=== PATIENT | male | born 1950 | race Caucasian/White ===

== ENCOUNTER 2017-09-14 07:20 | Observation (INO) ==
[2017-09-14] MEDS ORDERED: 0.9 % Sodium Chloride 1,000 ML IVC SCH (08:00)
[2017-09-14] MEDS ORDERED: Heparin 1,000 UNIT, 0.9 % Sodium Chloride 500 ML INARTERIAL ONE (09:00)
--- NOTE | 2017-09-14 09:07 | Electrophysiology H & P ---
Date of Encounter: 09/14/17 Time of Encounter: 09:02 Assessment and Plan (1) SVT (supraventricular tachycardia) Current Visit: Yes Status: Acute The assessment and plan as outlined above was discussed with the patient and/or family members who expressed understanding and agreement. All questions were answered. Symptomatic, he has elected EPS/ ablation for possible cure. History of Present Illness Chief complaint: PALPS HPI: Mr. Barger is a 67 year old male with a history of palpitations. A LOOP recorder had been previously implanted. Recent recordings show episodes c/w SVT. Medical therapy or ablation was discussed. The procedure was discussed in detail. He agreed to proceed. Past Med Surg Social Fam HX - Past Medical History Medical history: non-contributory, other Psychiatric history: no psych history - Social History Smoking Status: Light tobacco smoker Smokeless Tobacco Status: No Alcohol use: none Drug use: none Medications and Allergies Multivitamin/Iron/Folic Acid [Centrum Complete Multivit Tab] 1 each PO DAILY 09/25 [History] lamoTRIgine [Lamictal] 1.5 tab PO QAM 07/22/16 [History] LevETIRAcetam [Keppra] 500 mg PO BID 05/04/17 [History] Aspirin [Lo-Dose Aspirin EC] 81 mg PO DAILY 09/14/17 [History] Hydrocodone/Ibuprofen [Hydrocodone-Ibuprofen 7.5-200] 1 tab PO Q8H PRN 09/14/17 [History] Ibuprofen [Advil] 400 mg PO Q6H PRN 09/14/17 [History] lamoTRIgine [Lamictal] 100 mg PO HS 09/14/17 [History] 3 Allergy/AdvReac Type Severity Reaction Status Date / Time acetaminophen [From Tylenol] Allergy Seizure Verified 07/21/17 13:16 povidone-iodine Allergy Rash Verified 07/21/17 13:16 [From Betadine] soap [From Betadine] Allergy Rash Verified 07/21/17 13:16 tramadol Allergy Seizure Verified 07/21/17 13:16 trazodone Allergy Seizure Verified 07/21/17 13:16 All Systems Review: A 10-system review of systems was performed and is negative for pertinent findings except as documented above in the HPI. Physical Examination General: Conversant, No Apparent Distress HEENT: Atraumatic, Normocephaly, Mucus Membranes Moist Neck: No JVD, Normal carotid pulses Cardiac: Reg Rate and Rhythm, Normal S1 and S2, No Murmur Lungs: Normal Breath Sounds, No Wheeze, Rales, Rhonchi Neuro: Alert and responsive Abdomen: Soft, Non-Tender Skin: No rashes noted on visualized skin Extremities: No Clubbing, No Cyanosis, No Edema, Normal Pulses
[2017-09-14] MEDS ORDERED: *HR* FentaNYL (PF) 100 MCG/2 ML VIAL ONE (09:34)
[2017-09-14] MEDS ORDERED: *HR* Midazolam HCl 5 MG/5 ML VIAL IVP ONE (09:34)
[2017-09-14] MEDS ORDERED: Isoproterenol HCl 1 MG/5 ML AMPUL ONE (10:11)
[2017-09-14] MEDS ORDERED: D5% in Water 250 ML ONE (10:12)
[2017-09-14] MEDS ORDERED: *HR* Promethazine 25 MG/ML VIAL IVP PRN (11:46)
[2017-09-14] MEDS ORDERED: Naloxone 0.4 MG/ML INJ IVP PRN (11:46)
--- NOTE | 2017-09-14 11:46 | Pre-Sedation Evaluation ---
Pre-sedation evaluation - Pre-sedation checklist Date of procedure: 09/14/17 Procedure: SVT ablation Recent Vitals: Last Vital Signs Temp 98.7 F 09/14/17 08:54 Pulse 65 09/14/17 08:54 Resp 16 09/14/17 08:54 BP 126/69 09/14/17 08:54 Pulse Ox 95 09/14/17 08:54 H&P (including ROS) documented in medical record: Yes Previous reaction to sedatives/anesthetics: No Dietary Status: NPO after Midnight Airway Assessment: Patient can open mouth completely, TMJ function normal, Micrognathia (under-bite, receding chin) absent Dentition: No loose teeth or bridges Possible difficult airway: No ASA Classification *see protocol: CLASS II-Mild systemic disease Plan of Care: Pt appropriate candidate for procedure/moderate/conscious sedation , Risks/benefits of procedure/sedation discussed w/ patient/family
--- NOTE | 2017-09-14 22:23 | Electrocardiograph Report ---
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
[2017-09-15 08:54] LABS: Basophils # 0.1 K/mcL (0.0-0.2); Eosinophils # 0.2 K/mcL (0.0-0.6); Hematocrit 44.9 % (37.5-50.1); Hemoglobin 15.4 g/dL (12.9-16.9); Immature Granulocytes % 0.7 % (0-4); Lymphocytes # 2.7 K/mcL (0.6-4.6); Lymphocytes % 21.6 %; Mean Corpuscular HGB Conc 34.3 g/dL (31.6-35.5); Mean Corpuscular Hemoglobin 30.7 pg (28.0-33.3); Mean Corpuscular Volume 89.4 fL (83.0-100.0); Mean Platelet Volume 9.8 fL (9.4-12.4); Monocytes # 1.1 K/mcL (0.0-1.3); Monocytes % 8.8 %; Neutrophils # 8.1 K/mcL (1.6-8.9); Platelet Count 192 K/mcL (140-400); Red Blood Count 5.02 M/mcL (4.19-5.50); Red Cell Distribution Width 13.6 % (11.5-14.5); Segmented Neutrophils % 65.9 %
[2017-09-15 09:04] LABS: BUN/Creatinine Ratio 24 (6-26); Blood Urea Nitrogen 18 mg/dL (8-26); Carbon Dioxide 23 mEq/L (19-29); Chloride 106 mEq/L (98-109); Potassium 4.6 mEq/L (3.5-4.5); Sodium 139 mEq/L (136-145)
[2017-09-15 09:05] LABS: Calcium 8.9 mg/dL (8.6-10.8); Glucose 108 mg/dL (70-99); Osmolality,Calculated 290 (280-300); eGFR For African Americans > 60 (> 60); eGFR For Non-African Americans > 60 (> 60)
--- NOTE | 2017-09-15 09:38 | Event Note ---
Date of Encounter: 09/15/17 Time of Encounter: 09:36 - Cardiology Event Note Plan was to undergo SVT ablation yesterday. Ended up being A-Flutter ablation. During procedure, pt went into V-Fib. Recommended he stay for [facility] to rule out ischemic cause of V-Fib. C discussed--R/B/A. Pt agrees to proceed with [facility] today. Further recommendations to follow.
[2017-09-15 09:45] LABS: Prothrombin Time 10.8 Seconds (9.4-12.1)
[2017-09-15] MEDS ORDERED: *HR* Heparin 10,000 UNIT/10 ML VIAL ONE (12:34)
[2017-09-15] MEDS ORDERED: Heparin 1,000 UNITS/500 mL NS 500 ML ONE (12:34)
[2017-09-15] MEDS ORDERED: 0.9 % Sodium Chloride 1,000 ML ONE (12:34)
[2017-09-15] MEDS ORDERED: Nitroglycerin 1,000 MCG/10 ML VIAL IV ONE (12:35)
--- NOTE | 2017-09-15 12:40 | Pre-Sedation Evaluation ---
Pre-sedation evaluation - Pre-sedation checklist Date of procedure: 09/15/17 Procedure: Left Heart Cath Recent Vitals: Last Vital Signs Temp 97.9 F 09/15/17 06:54 Pulse 67 09/15/17 06:54 Resp 18 09/15/17 06:54 BP 135/80 09/15/17 06:54 Pulse Ox 98 09/15/17 06:54 H&P (including ROS) documented in medical record: Yes Previous reaction to sedatives/anesthetics: No Dietary Status: NPO after Midnight Airway Assessment: Patient can open mouth completely, TMJ function normal Dentition: full dentition Possible difficult airway: No ASA Classification *see protocol: CLASS IV-Severe systemic disease/constant threat to pt's life Plan of Care: Pt appropriate candidate for procedure/moderate/conscious sedation , Risks/benefits of procedure/sedation discussed w/ patient/family, If not NPO; Risk of intake outweiged by necessity to perform procedure
[2017-09-15] MEDS ORDERED: *HR* Midazolam HCl 2 MG/2 ML VIAL ONE ×2 (12:43→12:54)
[2017-09-15] MEDS ORDERED: *HR* Bivalirudin 250 MG VIAL IVC ONE (13:02)
[2017-09-15] MEDS ORDERED: *HR* Ticagrelor 90 MG TABLET ONE (13:17)
--- NOTE | 2017-09-15 13:35 | Invasive Diagnostic Lab Proc ---
Name: Garrett Barger Date of Study: 09/15/2017 Date: 1950 Ht: 68.1in Medical Record#: [id number] Age: 67 Wt: 209.44lb Gender: Male BSA: 2.09 Order #: [id number] BMI: 31.74 Physicians Procedure Physician: Allan Lira DO Referring MD: Referring MD: Staff Name Position Time In Sites, Hellen RT (R) Scrub 12:37 PM Roberto Francisco RT (R) Monitor 12:37 PM Yobani Shukla RN [employer] 12:37 PM Indications Indication Unstable Angina Procedures Performed Procedure L HRT ARTERY/VENTRICLE ANGIO PRQ CARD SAMARA STENT W/ANGIO 1 VSL Pre-Procedure Checklist Informed consent is complete signed and on chart. H&P is on chart. ID band is on and ID verified with patient. Patient NPO for procedure The procedure was described for the patient and questions were answered. Blood Pressure: 148/78 ECG is on chart. Rhythm: Sinus Bradycardia Plan of Care Patient will tolerate the procedure without complications. Adequate level of comfort will be maintained. Hemodynamics will remain stable Patient will recover from procedure without complications. Respiratory function will be maintained. Cardiac rhythm will remain stable. Patient temperature will be maintained. Patient and/or family have verbalized understanding of the procedure. Patient Education Chief Complaint/Reason for Test: Cardiac Cath Developmental Category: Geriatric (65+ years) Developmentally Appropriate for Age: Yes Learning Barriers: None Education Needs: Procedure Education Method: Verbal Information Taught: Cardiac Cath Educational Evaluation: Able to repeat information Intravenous Access Time IV Size Location DC'd Fluid/Drip Rate Units RN 12:45 PM Started with 22g 1 " Lt Hand 0.9NaCl 25 ml/hr Yobani Shukla RN Allergies acetaminophen tramadol trazodone Povidone Iodine soap povidone-iodine Vital Signs Time BP (mmHg) HR (bpm) O2 Sat. RR (bpm) LOC 12:37 PM 148 / 78 55 97 % 16 5 = Fully awake and oriented or at pre-proc level 12:37 PM / % 5 = Fully awake and oriented or at pre-proc level 12:52 PM / % 4 = Oriented but drowsy 01:08 PM / % 5 = Fully awake and oriented or at pre-proc level 12:45 PM 148 / 78 52 97 % 12:50 PM 146 / 77 60 97 % 8 12:55 PM 133 / 76 55 96 % 13 01:00 PM 134 / 71 60 94 % 14 01:05 PM 127 / 74 59 94 % 15 01:10 PM 151 / 95 71 96 % 13 01:15 PM 168 / 88 69 98 % 11 01:20 PM 170 / 88 60 97 % 20 Procedural Medications Time Medication Dose Units Method Given By 12:49 PM Versed 2 mg Intravenous Yobani Shukla RN 12:49 PM Oxygen 2 L/min nasal cannula Yobani Shukla RN 12:54 PM Lidocaine 2% 10 ml Subcutaneous Allan Lira, DO 12:55 PM Versed 1 mg Intravenous Yobani Shukla RN 01:05 PM Angiomax 0.75mg/kg bolus: 14 ml Intravenous Yobani Shukla RN 01:21 PM Brilinta 180 mg Orally Yobani Shukla RN ASA Classification: CLASS II- Mild systemic disease (i.e. well-controlled diabetes, hypertension, asthma, cigarette smoking) Freda Score Preprocedure Postprocedure Activity 2- Moves 4 extremities sustained head lift Activity 2- Moves 4 extremities sustained head lift Circulation 2- SBP +/= 20 points of pre-anesthetic level Circulation 2- SBP +/= 20 points of pre-anesthetic level Consciousness 2- Awake and alert oriented x 3 Consciousness 2- Awake and alert oriented x 3 O2 Saturation 2- Able to maintain O2 satruation of 92% on room air O2 Saturation 2- Able to maintain O2 satruation of 92% on room air Respiratory 2- Able to deep breathe and cough well Respiratory 2- Able to deep breathe and cough well Total Score 10 Total Score 10 Contrast Agent: Isovue Diagnostic Contrast: 80 ml Total Contrast: 80 ml Fluoro Dose: 536 mGy Procedure Log Time Note Enter By 12:37 PM Patient charges- Angio tray pack, Navilyst 3mm J, Pulse Oximetry and ACIST tubing and transducer [email or web address] 12:37 PM Hellen Guerra RT (R) Position: Scrub Time in: 12:37 [email or web address] 12:37 PM Roberto Francisco RT (R) Position: Monitor Time in: 12:37 [email or web address] 12:37 PM Yobani Shukla RN Position: [employer] Time in: 12:37 [email or web address] 12:37 PM 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 [email or web address] 12:39 PM Procedure start 12:39 [email or web address] 12:39 PM Case Delayed No [email or web address] 12:44 PM Vitals capture started with the following parameters, Patient=Adult, Interval=5 min, Initial Ekpyeyoj=404 mmHg, Deflation Rate=5 mmHg, Cuff placed on Left Arm 12:45 PM HR=52 bpm, MGZN=230/78 mmhg, SpO2=97.0 % 12:45 PM ASA Class CLASS II- Mild systemic disease (i.e. well-controlled diabetes, hypertension, asthma, cigarette smoking) [email or web address] 12:46 PM Clinical Presentation: Unstable angina [email or web address] 12:48 PM Recorded ECG: HR=58 Condition=Condition 1 12:48 PM Reference ECG taken 12:49 PM Hair removed from procedure site in procedure lab using clippers. Bilateral groin prepped with Chloraprep by Roberto Francisco (R), safety strap applied then patient was draped. Skin intact. [email or web address] 12:49 PM Time: 12:49 Versed 2 mg Intravenous Given by Yobani Shukla RN ilson 12:49 PM Time: 12:49 Oxygen on at 2 L/min per nasal cannula by Yobani Shukla RN [facility]2 12:50 PM HR=60 bpm, ZTBZ=198/77 mmhg, SpO2=97.0 %, Resp=8 B/min, Comment=NSR 12:52 PM Time: 12:37LOC: 5 = Fully awake and oriented or at pre-proc level [email or web address] 12:52 PM Time: 12:37 Patient comfortable and pain free: Yes [email or web address] 12:53 PM Pressure channel 2 zeroed. 12:54 PM Time out performed according to hospital policy [email or web address] 12:54 PM Micro-Introducer Kit utilized for sheath placement [email or web address] 12:54 PM Time: 12:54 10 ml Lidocaine 2% to right groin Subcutaneous Given by Allan Lira DO [email or web address] 12:55 PM Time: 12:55 Versed 1 mg Intravenous Given by Yobani Shukla RN [email or web address] 12:55 PM HR=55 bpm, ONEL=482/76 mmhg, SpO2=96.0 %, Resp=13 B/min, Comment=SB 12:57 PM Access obtained by percutaneous puncture. 6Fr 10cm Terumo [place] sheath placed in right Femoral artery. [id number] [email or web address] 12:57 PM 0.035 145cm Navilyst 3mmJ wire [id number] [email or web address] 12:57 PM 6Fr FR 4 catheter inserted over the wire [facility] 12:58 PM Recorded Pressure: LV, LV, HR=79, Condition=Condition 1 (Left Ventricle) LV -33/-33/-33, (Left Ventricle) LV 99/26/28 12:59 PM Recorded Pressure: LV, LV, Ao, HR=78, Condition=Condition 1 (Left Ventricle) LV -33/-33/-33, (Left Ventricle) LV 83/12/75, (Aorta) Ao 96/25/64 12:59 PM Catheter selectively placed in left ventricle hand injected [email or web address] 12:59 PM RCA angiography performed in multiple views. [email or web address] 01:00 PM HR=60 bpm, KMAW=610/71 mmhg, SpO2=94.0 %, Resp=14 B/min 01:00 PM Coronary Dominance: right [email or web address] 01:00 PM Catheter removed [email or web address] 01:00 PM 5Fr FL 4 catheter inserted over the wire [facility] [email or web address] 01:00 PM Recorded Pressure: Ao, HR=61, Condition=Condition 1 (Aorta) Ao 110/61/79 01:01 PM LCA angiography performed in multiple views. [email or web address] 01:01 PM Recorded Pressure: Ao, HR=62, Condition=Condition 1 (Aorta) Ao 109/60/81 01:02 PM Physician reviewing films [email or web address] 01:02 PM Catheter removed [email or web address] 01:03 PM Lesion found in 1st Diagonal. Pre Stenosis: 80 Pre LULU Flow: [email or web address] 01:03 PM Mid/Distal Left Anterior Descending Coronary Artery and diagonal branches with 80% stenosis. If graft is supplying this area, 0 % stenosis [email or web address] 01:03 PM Inflation device was opened. [email or web address] 01:03 PM 6Fr JL4 Runway guide catheter was used to cannulate the PCI vessel successfully. reused? No [email or web address] 01:05 PM HR=59 bpm, WUQL=241/74 mmhg, SpO2=94.0 %, Resp=15 B/min 01:05 PM Time: 13:05 Angiomax 0.75mg/kg bolus: 14 ml Intravenous Given by Yobani Shukla RN Jasmine pump 01:05 PM .014 PT Graphix 300cm guide wire across target lesion- successful. reused? No [email or web address] 01:05 PM Recorded Pressure: Ao, HR=60, Condition=Condition 1 (Aorta) Ao 118/64/85 01:07 PM Time: 12:52 Patient comfortable and pain free: Yes 01:08 PM Time: 12:52LOC: 4 = Oriented but drowsy [email or web address] 01:08 PM 2.5mm x 16mm Synergy drug-eluting stent across target lesion- successful Lot #[id number] ilson 01:10 PM Stent deployed @ 16 rob for 19 seconds [email or web address] 01:10 PM HR=71 bpm, WHTU=471/95 mmhg, SpO2=96.0 %, Resp=13 B/min 01:10 PM Stent delivery system removed intact. [email or web address] 01:10 PM Recorded Pressure: Ao, HR=65, Condition=Condition 1 (Aorta) Ao 170/86/120 01:11 PM Guide wire removed intact. [email or web address] 01:11 PM hand injected rt groin [email or web address] 01:12 PM Guide catheter removed intact. [email or web address] 01:13 PM Arterial sheath pulled, Mynx closure device used and was Successful S/N. [email or web address] 01:15 PM Isovue 370 - 200ml,1 Bottle(s) used. [email or web address] 01:15 PM HR=69 bpm, FHBN=213/88 mmhg, SpO2=98.0 %, Resp=11 B/min 01:17 PM Procedure completed at 13:17 [email or web address] 01:17 PM Sign out completed: Radiation Dose 536.09 mGy Fluoro Time: 3.7 Isovue 370 - 200ml contrast 80 ml given by Allan Lira DO. Complications: NoneCardiac Rehab Consult needed: YesConfirmed administered medications: Yes [email or web address] 01:17 PM Estimated Blood Loss: minimal [email or web address] 01:17 PM Post ECG NSR [email or web address] 01:17 PM Post Blood Pressure 168/88 [email or web address] 01:17 PM Information taught Cardiac Cath and PCI [email or web address] 01:17 PM Education needs Procedure, Plan of Care, and Disease Process [email or web address] 01:17 PM Learning barriers :Sedated [email or web address] 01:17 PM Education Methods Verbal [email or web address] 01:17 PM Education evaluation Able to repeat information [email or web address] 01:18 PM Delay to floor No [email or web address] 01:18 PM Family placed in consult room. [email or web address] 01:18 PM Complications: None [email or web address] 01:18 PM Fluoro Time: 3.7 ilson 01:19 PM Isovue 370 - 200ml contrast 80 ml given by Allan Lira DO. 01:19 PM Radiation Dose 536.09 mGy ilson 01:20 PM HR=60 bpm, EOUB=312/88 mmhg, SpO2=97.0 %, Resp=20 B/min 01:21 PM Time: 13:21 Brilinta 180 mg Orally Given by Yobani Shukla RN 01:23 PM Time: 13:08LOC: 5 = Fully awake and oriented or at pre-proc level [email or web address] 01:23 PM Time: 13:07 Patient comfortable and pain free: Yes [email or web address] 01:24 PM Vitals capture stopped. 01:25 PM Site status No bleeding/hematoma - Rt Groin as reported by Sites, Hellen RT (R) at 13:25 [email or web address] 01:25 PM Opsite applied [email or web address] 01:25 PM 13:25 Post Pulses Bilateral DP & PT 2+ [email or web address] 01:26 PM Report given to kari DONNELLY Pt taken to E Room #17. 13:26 [email or web address] 01:29 PM Patient out of room: 13:29 [email or web address] Complications Complication None None Hemodynamics Pressures Site Systolic/A Wave Diastolic/V Wave Mean LV -33 -33 -33 LV 99 26 28 LV -33 -33 -33 LV 83 12 75 AO 96 25 64 AO 110 61 79 AO 109 60 81 AO 118 64 85 AO 170 86 120 Post Procedure Information Blood Pressure: 168/88 mmHg Rhythm: NSR Post procedural instructions were given Closure Device Time Device Success/Fail 09/15/2017 1:13:00 PM MynxGrip Successful Site Checks Time Location Status Staff Sheath In? Note 01:25 PM Rt Groin No bleeding/hematoma Sites, Hellen RT (R) Pulses Time Site Pre-Procedure Post-Procedure Note 09/15/2017 12:46:00 PM Bilateral PT 1+ 09/15/2017 12:46:00 PM Bilateral radial 2+ 1:25:00 PM Bilateral DP & PT 2+ Updated by Roberto Francisco RT (R) on 09/15/2017 1:30:16 PM Roberto Francisco RT electronically signed on 09/15/2017 1:30:44 PM with status of Final
[2017-09-15] MEDS ORDERED: *HR* Morphine 2 MG/ML SYRINGE IVP PRN (14:24)
[2017-09-15] MEDS: 0.9 % Sodium Chloride 1,000 ML IVC SCH ×2 (14:47→21:49)
[2017-09-15] MEDS: *HR* Ticagrelor 90 MG TABLET PO SCH (21:22)
[2017-09-16 03:39] LABS: Basophils # 0.1 K/mcL (0.0-0.2); Basophils % 0.9 %; Eosinophils # 0.2 K/mcL (0.0-0.6); Eosinophils % 1.7 %; Hematocrit 43.6 % (37.5-50.1); Immature Granulocytes % 0.6 % (0-4); Lymphocytes # 2.9 K/mcL (0.6-4.6); Lymphocytes % 22.7 %; Mean Corpuscular HGB Conc 34.4 g/dL (31.6-35.5); Mean Corpuscular Hemoglobin 30.4 pg (28.0-33.3); Mean Corpuscular Volume 88.4 fL (83.0-100.0); Mean Platelet Volume 10.1 fL (9.4-12.4); Monocytes # 1.1 K/mcL (0.0-1.3); Monocytes % 8.9 %; Neutrophils # 8.3 K/mcL (1.6-8.9); Platelet Count 197 K/mcL (140-400); Red Blood Count 4.93 M/mcL (4.19-5.50); Red Cell Distribution Width 13.6 % (11.5-14.5); Segmented Neutrophils % 65.2 %
[2017-09-16 03:57] LABS: BUN/Creatinine Ratio 21 (6-26); Blood Urea Nitrogen 15 mg/dL (8-26); Calcium 8.4 mg/dL (8.6-10.8); Carbon Dioxide 20 mEq/L (19-29); Chloride 110 mEq/L (98-109); Glucose 99 mg/dL (70-99); Osmolality,Calculated 289 (280-300); Potassium 4.2 mEq/L (3.5-4.5); Sodium 139 mEq/L (136-145); eGFR For African Americans > 60 (> 60); eGFR For Non-African Americans > 60 (> 60)
[2017-09-16 06:40] VITALS: BP 135/81
[2017-09-16] MEDS: *HR* Ticagrelor 90 MG TABLET PO SCH (08:09)
[2017-09-16] MEDS ORDERED: Metoprolol XL (24 HR) Succ 25 MG TAB.ER.24H PO SCH (10:00)
[2017-09-16] MEDS ORDERED: Aspirin 81 MG TAB.CHEW PO SCH (10:00)
--- NOTE | 2017-09-16 10:16 | Discharge Summary ---
Date of Encounter: 09/16/17 Time of Encounter: 10:12 - Discharge Diagnosis (1) CAD (coronary artery disease) Priority: Primary Status: Acute Qualifiers: Coronary Disease-Associated Artery/Lesion type: [place] artery [place] vs. transplanted heart: [place] heart Associated angina: without angina Qualified Code(s): I25.10 - Atherosclerotic heart disease of [place] coronary artery without angina pectoris (2) Atrial flutter Priority: Secondary Status: Acute Qualifiers: Atrial flutter type: unspecified Qualified Code(s): I48.92 - Unspecified atrial flutter (3) Ventricular fibrillation Priority: Primary Status: Acute - Discharge Medications Prescriptions: Aspirin [Lo-Dose Aspirin EC] 81 mg PO DAILY #30 tablet. Atorvastatin [Lipitor] 40 mg PO HS #30 tablet Metoprolol XL (24 HR) Succ [Toprol Xl] 25 mg PO DAILY #30 tab.er.24h Nicotine Patch [Nicoderm] 21 mg TD DAILY #30 patch.td24 Nitroglycerin 0.4 mg SL PRN PRN #30 tab.subl PRN Reason: Chest Pain Ticagrelor [Brilinta] 90 mg PO BID #60 tablet Home Medications: Multivitamin/Iron/Folic Acid [Centrum Complete Multivit Tab] 1 each PO DAILY 09/25 [History] lamoTRIgine [Lamictal] 150 mg PO QAM 07/22/16 [History] LevETIRAcetam [Keppra] 500 mg PO BID 05/04/17 [History] Hydrocodone/Ibuprofen [Hydrocodone-Ibuprofen 7.5-200] 1 tab PO Q8H PRN 09/14/17 [History] Ibuprofen [Advil] 400 mg PO Q6H PRN 09/14/17 [History] lamoTRIgine [Lamictal] 100 mg PO HS 09/14/17 [History] Aspirin [Lo-Dose Aspirin EC] 81 mg PO DAILY #30 tablet. 09/16/17 [Rx] Atorvastatin [Lipitor] 40 mg PO HS #30 tablet 09/16/17 [Rx] Metoprolol XL (24 HR) Succ [Toprol Xl] 25 mg PO DAILY #30 tab.er.24h 09/16/17 [ Rx] Nicotine Patch [Nicoderm] 21 mg TD DAILY #30 patch.td24 09/16/17 [Rx] Nitroglycerin 0.4 mg SL PRN PRN #30 tab.subl 09/16/17 [Rx] Ticagrelor [Brilinta] 90 mg PO BID #60 tablet 09/16/17 [Rx] Allergies/Adverse Reactions: 3 Allergy/AdvReac Type Severity Reaction Status Date / Time acetaminophen [From Tylenol] Allergy Seizure Verified 07/21/17 13:16 povidone-iodine Allergy Rash Verified 07/21/17 13:16 [From Betadine] soap [From Betadine] Allergy Rash Verified 07/21/17 13:16 tramadol Allergy Seizure Verified 07/21/17 13:16 trazodone Allergy Seizure Verified 07/21/17 13:16 Procedures/tests Complete & Pending: Procedures Performed prior 72 hours Category Date Time Status CL Ablation [CL] Routine Cytology Technologist 09/14/17 07:46 Completed CL Cardiac Catheterization [CL] Routine Cytology Technologist 09/15/17 08:18 Completed ECG 12 lead ECG [ECG] Routine Y 09/14/17 07:53 Completed EV limited echocardiogram Routine Y 09/15/17 15:21 Completed Date of admission: 09/14/17 15:51 Primary care physician: Modesta Terrell, Discharging clinician: Tomer Chin Anticipated date of discharge: 09/16/17 - Patient Status Disposition: Home, Self-Care Condition: Good Overall status at discharge: patient is progressing back to baseline - Discharge Instructions Follow Up With: Modesta Terrell MD [Primary Care Provider] - 09/22/17 9:30 am Additional Instructions: RISK FACTORS: STOP SMOKING: If you smoke, STOP. Smoking or tobacco use significantly increases your risk of heart disease because nicotine causes the arteries to narrow or constrict. It also causes fats to stick to the artery. Your chances of having a heart attack are greatly increased if you continue to smoke. For more information, call the education line for smoking cessation 6-403-KQSBGOE EAT A LOW FAT/CHOLESTEROL/SODIUM DIET: This diet may help reduce your chances of having a heart attack. LIFTING: Avoid lifting anything more than 10 pounds for 5-7 days Prior to straining, laughing, sneezing and/or coughing, apply manual pressure directly over insertion site. ACTIVITY: You may walk or climb stairs as tolerated You can resume sexual activity as tolerated In general, you are encouraged to engage in a minimum of 30 minutes or more of moderate intensity physical activity, such as brisk walking, daily or at least 3 -4 times weekly BATHING Do not submerge the site into water (bath tub, hot tub, swimming pool) for 1 week. This can be a source for infection into the blood stream. You may shower after 24 hours SITE CARE: After 24 hours, you may remove the dressing and leave the site open to air. Keep the site clean and dry. Clean gently and pat dry. You can expect bruising and tenderness that gradually resolve within a week or two. Return to work as instructed per your physician Resume driving as instructed per physician Keep all scheduled follow up appointments Resume medications as instructed IMPORTANT: If prescribed a Platelet Aggregation Inhibitor such as, Plavix, Brilinta or Effient: Duration of therapy is minimum one year These medications are often used in combination with Aspirin in prevention of future heart attacks Never discontinue unless consult with your Project Associate STROKE (CVA) Risk factors for a stroke are: Age, cigarette smoking, diabetes, excessive alcohol consumption, family history, high blood pressure, overweight, physical inactivity, prior stroke, heart attack, diagnosis of carotid artery stenosis or other artery disease. Warning signs: Sudden numbness or weakness of the face, arm or leg; especially on one side of the body, sudden confusion, trouble speaking or understanding, sudden trouble seeing in one or both eyes, sudden trouble walking, dizziness, loss of balance or coordination, sudden severe headache with no cause. Call 911 or go to the Emergency Room. CONGESTIVE HEART FAILURE: If you have been diagnosed with Congestive Heart Failure (CHF) and your symptoms return, make an appointment with your physician Weigh yourself daily. Notify your physician if you have a weight gain of two or more pounds in one day or five or more pounds in one week. If you experience any difficulty breathing, please call 911 BLEEDING: Although the risk of bleeding is minimal, it can happen. If you have any bleeding from the site, apply firm pressure above the puncture site for 10-15 minutes. If the bleeding does not stop, continue manual pressure and call 911 Contact your physician if: You develop a fever greater than 101 degrees Fahrenheit Your site becomes reddened or has any drainage You have an increase in pain or burning at the site or if a large knot forms at the site. If you experience chest pain, shortness of breath, dizziness, or extreme tiredness, stop the activity and rest. Please notify your physicians office if you experience any of these symptoms and they are not relieved by rest please call 911!ACTIVITY: It is recommended to have someone stay overnight for the first night after the procedure. Avoid strenuous activity, climbing stairs, and no lifting more than 5 pounds (gallon of milk) for 5-7 days to minimize risk of bleeding from procedure site. BATHING/SHOWERING: Sponge bathe only for the first 24 hours. You may shower after 24 hours. Allow water to rinse over site, do not scrub site, and pat dry gently with a towel. No baths, hot tubs, or soaking for 5-7 days. WOUND CARE: Do not remove the bandage over the site for 24 hours. Do not use any antibiotic ointment or Vitamin E on the site. If you have any bleeding or swelling to the groin, please lay flat and hold pressure for 15 minutes. Return to work as instructed per physician Resume driving as instructed per physician Keep all scheduled follow up appointments Resume medications as instructed Contact [facility] ( ) if: You develop excessive bleeding from insertion or wound site not controlled by applying pressure You develop a fever greater than 101 degrees Fahrenheit Your incision becomes reddened at or around the site Your incision develops yellowish or greenish drainage or development of white pimple-like bumps You experience excessive pain You experience muscle switching If you experience chest pain, shortness of breath, dizziness, or extreme tiredness, stop the activity and rest. Please notify [facility] office if you experience any of these symptoms and they are not relieved by rest please call 911! - Diet and Activity Activity: increase activity as tolerated Diet: advance to your usual diet, low fat, low cholesterol - Hospital Course Hospital course: Mr. Barger is a 67 year old male that presented for planned outpt SVT ablation. During ablation, A-Fib and A-Flutter was induced. Pt had emperic A-Flutter ablation. Pt also went into V-Fib during ablation, was recommended he be admitted for [facility] to rule out ischemic cause. LHC revealed severe 1 vessel CAD, EF 55%, successful SAMARA to prox Diag. Pt denies chest pain or dyspnea. DAPT (ASA and Brilinta) uninterrupted x 1 year. Pt verbalizes understanding. Coupon card given. BB and Statin started as well. Pt with tobacco abuse--smoking cessation counseling given. Pt agrees to nicotine patches--prescribed. Discussed with Dr. Carroll Thompson. Cause of V-Fib thought to be from either the CAD now s/p PCI or nonspecific. No Life vest warranted per Dr. Carroll Thompson. BB started. I discussed fci anticoagulation with Dr. Carroll Thompson. Episode of A-Flutter was a brief episode induced in lab. 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 Right femoral acces site healing well. No bleeding or hematoma noted. Moderate amount of ecchymosis. Labs and vitals stable. 12 hr tele AVG HR 61--SR. No evidence of arrhythmias. Pt being discharged home in stable condition. Will coordinate follow-up with EP and general cardiology. Time spent discussing smoking cessation with patient: 3 to 10 minutes - Time Spent with Patient Total time spent providing and/or coordinating discharge services: Less than 30 minutes Physical Examination Vital Signs, Last 4 Hours Temp Pulse Resp BP Pulse Ox 09/16/17 06:37 97.8 F 65 18 135/81 98 Vital Signs Temp Pulse Resp BP Pulse Ox 09/16/17 06:37 97.8 F 65 18 135/81 98 09/16/17 04:45 98.4 F 59 18 124/76 94 09/15/17 19:55 98.4 F 70 18 135/70 96 09/15/17 18:08 97.9 F 55 18 139/76 97 09/15/17 16:48 97.9 F 65 18 149/83 97 09/15/17 15:21 97.9 F 57 18 148/75 97 09/15/17 15:00 60 18 148/75 97 09/15/17 14:52 97.9 F 50 18 139/81 98 09/15/17 14:30 97.9 F 62 18 150/87 98 09/15/17 14:17 97.9 F 60 18 152/88 98 09/15/17 13:58 97.9 F 70 18 159/94 98 Intake and Output 09/15/17 09/16/17 09/16/17 23:59 07:59 15:59 Intake Total 1120 / 1120 120 / 120 240 / 240 Balance 1120 / 1120 120 / 120 240 / 240 Intake: IV Fluids 1000 / 1000 0.9 % Sodium Chloride 1,000 ML 1000 / 1000 @ 100 mls/hr IVC .Q10H [facility]ATIA Rx#: [id number] Oral 120 / 120 120 / 120 240 / 240 Other: Meal Breakfast Percent of Meal Consumed 100% # Voids 0 3 Weight 95.3 kg Patient Weight 09/16/17 23:59 Weight 95.3 kg General: Conversant, No Apparent Distress HEENT: Atraumatic, Normocephaly, Mucus Membranes Moist Neck: No JVD, Normal carotid pulses Cardiac: Reg Rate and Rhythm, Normal S1 and S2, No Murmur Lungs: Normal Breath Sounds, No Wheeze, Rales, Rhonchi Neuro: Alert and responsive, No focal deficits noted Abdomen: Soft, Non-Tender Skin: Other (right femoral access site healing well. No bleeding or hematoma. Moderate amount of ecchymosis noted.) Musculoskeletal: No Chest Wall Tenderness Extremities: No Clubbing, No Cyanosis, No Edema, Normal Pulses
== END 2017-09-16 11:01 | disposition home or self-care (01) ==
LOC: INVDIALAB 07:20 → 2NENU 07:20
PROVIDERS: ADMIT Internal Medicine Clinical Cardiac Electrophysiology; ATTEND Internal Medicine Clinical Cardiac Electrophysiology